=== PATIENT | female | born 2000 | race Caucasian/White ===

== ENCOUNTER 2019-02-09 20:11 | Day surgery (SDC) | payer OTHER ==
[2019-02-09 20:55] VITALS: BP 115/78; TEMP 98.4; BMI 26.6
[2019-02-09] MEDS ORDERED: hydrALAZINE 20 MG/ML VIAL SLOW IVP PRN (21:01)
--- NOTE | 2019-02-09 22:14 | PDOC.FPROB ---
FMR OB H&P: HPI - History of Present Illness Chief Complaint: DFM History of Present Illness: 18 yo @ 38.6 by LMP and 15 week sono presents for evaluation of DFM. Pt reports she is not feeling baby kick as much as usual. Prior to arrival pt reported some movement, but diminished compared to usual. Otherwise, no ctx, vag bleeding, vag discharge, LOF. No NVDC. Primary Care Physician: Linda CERVANTES FMR OB H&P: Current - Care : 1 Para: 0 Gestational age: 38.5 Due date: 02/18/2019 Dating Criteria: LMP 15 week sono - OB Labs Blood type: A RH: negative Antibody Screen: negative HIV: negative RPR: negative HepBsAg: negative Rubella: immune Quad screen: unknown Urine drug screen: not done Gonorrhea: negative Chlamydia: negative 1 hour gtt: 112 GBS: unknown FMR OB H&P: History - Past Medical History PMH: None - Social History Social History: Denies ETD FMR OB H&P: Medications - Current Home Medications: Medication Instructions Recorded Confirmed Type No Known 02/09/19 02/09/19 History Allergies/Adverse Reactions: Allergies Allergy/AdvReac Type Severity Reaction Status Date / Time No Known Allergies Allergy Unverified 02/09/19 20:56 FMR OB H&P: ROS - Review of Systems General: denies: fever/chills Eyes: denies: vision changes ENT: denies: nasal congestion Cardiovascular: denies: chest pain, edema Respiratory: denies: cough, congestion Gastrointestinal: denies: abdominal pain Genitourinary (Female): denies: vaginal discharge, vaginal pain, vaginal bleeding Musculoskeletal: denies: stiffness, tenderness Neurologic: denies: numbness, syncope, seizures Integumentary: denies: rash FMR OB H&P: Vital Signs - Maternal Vital signs: Vital Signs - First Documented Temp Resp BP Pulse Ox 98.4 F 14 115/78 82 L 02/09/19 20:51 02/09/19 20:51 02/09/19 20:51 02/09/19 20:51 - Heart Tones Baseline: 140 Variability: moderate Acceleration: present Deceleration: absent Category: category 1 [place] contractions every: Rare,few FMR OB H&P: Physical Exam - Physical Exam General: NAD, awake, alert and oriented HEENT: normocephalic and atraumatic, PERRLA, EOMI, MMM, conjunctiva clear, no scleral icterus Neck: supple, trachea midline Heart: RRR, normal S1/S2, no murmurs/rubs/gallops, no edema General: CTAB, no respiratory distress, good air movement, no rales/rhonchi Abdomen: soft, gravid, non-tender Musculoskeletal: pulses present, FROM in all four extremities Neurological: cranial nerves II through XII intact, no focal deficit Skin: no rash, good tugor - Pelvic Exam Estimated Weight: 6 lbs FMR OB H&P: Results - Imaging Imagin/8 BPP normal umbilical doppler, normal placenta MYRON borderline @ 6.9 FMR OB H&P: A/P - Problem List (1) Term Status: Acute Code(s): Z34.90 - ENCNTR FOR SUPRVSN OF NORMAL , UNSP, UNSP TRIMESTER (2) Decreased movement Status: Acute Code(s): O36.8190 - DECREASED MOVEMENTS, UNSP TRIMESTER, UNSP Disposition: 18 yo @ 38.5 presents for decreased movement - strip reactive and BPP 12/19 - Borderline MYRON @ 6.9Cm - Will DC to home and have pt f/u in clinic - reschedule mBPP this week in clinic to reassess MYRON Discussion: Date/Time: 02/09/19 4276 This H&P was discussed with Dr. Gaona who agree with the above documentation and plan.
--- NOTE | 2019-02-09 22:28 | ULT ---
US Biophysical Profile HISTORY: Decreased movement at home. COMPARISON: None. FINDINGS: A single viable intrauterine in a vertex presentation is present. heart rat e is 162 bpm. The amniotic fluid index is 6.1. The placenta is anterior. biophysical profile score is 8 of a possible 8. IMPRESSION: biophysical profile score of 8 of a possible 8
== END 2019-02-09 22:40 | disposition home or self-care (01) ==
LOC: L&D/OP 20:11
PROVIDERS: ATTEND Family Medicine
DX: O36.8130 Decreased fetal movements, third trimester, not applicable or unspecified (principal); Z3A.38 38 weeks gestation of pregnancy
CPT/HCPCS: 76819; 99282

== ENCOUNTER 2019-02-13 15:06 | Day surgery (SDC) | payer OTHER ==
[2019-02-13 15:35] VITALS: BMI 27.1
[2019-02-13] MEDS ORDERED: hydrALAZINE 20 MG/ML VIAL SLOW IVP PRN (15:48)
--- NOTE | 2019-02-13 16:20 | PDOC.FPROB ---
FMR OB H&P: HPI - History of Present Illness Chief Complaint: Elevated BP in clinic History of Present Illness: 18yo @ 39.2 by LMP c/w 15wk sono sent from clinic for elevated BP. BP was 144/76 today in clinic for which she presented for BPP/NST. Pt currently denies any symptoms and has no concerns/complaints. Endorses good movement, no LOF, change in vaginal d/c, vaginal bleeding, SOB, CP, [place], vision changes, RUQ pain, or significant LE edema. Of note, she presented last week to L&D triage for decreased movement, BPP was 8/8 and MYRON 6.1, vertex. She previously had US with MFM at 30.3 that was normal with MYRON of 16.2. No history of elevated BP prior in . Primary Care Physician: HELEN Oliva FMR OB H&P: Current - Care : 1 Para: 0 Gestational age: 39.2 Due date: 02/18/2019 Dating Criteria: LMP c/w 15wk sono Course/Complications: borderline MYRON - OB Labs Blood type: A RH: negative Antibody Screen: negative HIV: negative RPR: negative HepBsAg: negative Rubella: immune Quad screen: unknown (did not get) Gonorrhea: negative Chlamydia: negative 1 hour gtt: 112 - passed GBS: negative - Additional Ultrasound Additional: MFM us at 30.3 MYRON 16.2, anterior placenta. 25% Hadlock 20wk Anatomy US 75% growth. BPP last week for decreased movement MYRON 6.1, 8/8, vertex FMR OB H&P: History - Past Medical History PMH: none - OB History OB History: none - SLEEP LAB TECHNOLOGIST History SLEEP LAB TECHNOLOGIST History: none - Surgical History Sx History: none - Social History Social History: Denies Tob, EtOH, illicits. No new partners since conception. No h/o STD's. - Family History Family History: DMII. No OB or pediatric illnesses in family. FMR OB H&P: Medications - Current Home Medications: Medication Instructions Recorded Confirmed Type No Known 02/09/19 02/13/19 History Allergies/Adverse Reactions: Allergies Allergy/AdvReac Type Severity Reaction Status Date / Time No Known Allergies Allergy Verified 02/13/19 15:37 FMR OB H&P: ROS - Review of Systems General: denies: fever/chills, weight/appetite/sleep changes Eyes: denies: vision changes, double vision, scotomas ENT: denies: nasal congestion, rhinorrhea, sore throat Cardiovascular: denies: chest pain, palpitation Respiratory: denies: cough, congestion, shortness of breath Gastrointestinal: denies: abdominal pain, nausea, vomiting, diarrhea, constipation Genitourinary (Female): denies: incontinence, dysuria, hematuria, hesitancy, vaginal discharge, vaginal pain, vaginal bleeding, contractions, vaginal pressure Musculoskeletal: denies: pain Neurologic: denies: numbness, weakness Integumentary: denies: rash Psychological: denies: depression, anxiety FMR OB H&P: Vital Signs - Maternal Vital signs: BP 112/83 and 119/79, HR 98, 97% on RA. - Heart Tones Baseline: 140 Variability: moderate (reactice) Acceleration: present Deceleration: absent [place] contractions every: none FMR OB H&P: Physical Exam - Physical Exam General: NAD, awake, alert and oriented HEENT: EOMI, MMM, conjunctiva clear Neck: supple, trachea midline Heart: RRR, normal S1/S2, no murmurs/rubs/gallops, no edema General: CTAB, no respiratory distress, good air movement, no rales/rhonchi, no wheezing Abdomen: soft, gravid, non-tender, bowel sound present Musculoskeletal: normal gait and station Neurological: no focal deficit Skin: no rash Psychiatric: normal mood and affect FMR OB H&P: A/P - Problem List (1) Elevated blood pressure reading Status: Acute Code(s): R03.0 - ELEVATED BLOOD-PRESSURE READING, W/O DIAGNOSIS OF HTN (2) Term Status: Acute Code(s): Z34.90 - ENCNTR FOR SUPRVSN OF NORMAL , UNSP, UNSP TRIMESTER Disposition: 18yo @ 39.2 by LMP c/w 15wk sono with borderline MYRON on last BPP presents for elevated BP in clinic. #Elevated BP - 144/76 in clinic today, sent to L&D triage - no history of elevated BP. BP in triage 1179/79 and 122/83, will continue to monitor - no indication for PreE workup as of now, will monitor BP and if elevated x2 will obtain CBC, CMP, Ur Pr/Cr - FHT x20min, reassuring with no contractions, accels, no decels, moderate variability, baseline 140 - BPP 12/19 with MYRON 6.9 - Records reviewed and drop in size percentile and MYRON with small abdomen on exam, will obtain Growth US. #Borderline MYRON - On previous BPP last week for decreased movement, 12/19 at that time - Repeat BPP today MYRON 6.9 with deepest vertical pocket 2.8 - denies any LOF, will continue to monitor #Term - 39.2 today, FER 02/18/19 - Scheduled post-dates induction for 02/25 Dispo: Pending continued BP monitoring and Growth US. Will obtain PreE labs if warranted. Anticipate d/c if all WNL or induction if indicated. Addendum - Attending - Attending Attestation Date/Time: 02/14/19 6013 I personally evaluated the patient and discussed the management with Dr. Barron and Dhruv and team. I agree with the History, Examination, Assessment and Plan documented above with any addition or exceptions noted below.
--- NOTE | 2019-02-13 16:44 | ULT ---
US Biophysical Profile: 02/13/2019 3:47 PM CLINICAL HISTORY: Borderline MYRON. COMPARISON: 02/09/2019 FINDINGS: heart rate: 144 bpm. MYRON: 6.9 cm Biophysical profile: 8 of 8 IMPRESSION: Normal biophysical profile
--- NOTE | 2019-02-13 18:21 | ULT ---
ULTRASOUND OBSTETRICAL COMPLETE: DATE: 02/13/2019 HISTORY: 18-year-old female in third trimester of . Evaluate growth. FINDINGS: number: muñoz lie: Vertex Maternal cervix: Not visualized Placenta: Anterior. No placenta previa. Amniotic fluid volume: MYRON = 7cm heart rate: 137 bpm The following anatomy is visualized, with no evidence of anomalies: Bladder, kidneys, four-chamber heart, and stomach. The rest of the anatomy is poorly visualized. biometry: Biparietal diameter (BPD): 9.7 cm 39 w 5 d Head circumference (HC): 33.7 cm 38 w 4 d Abdominal circumference (AC): 31.9 cm 35 w 6 d Femur length (FL): 7.5 cm 38 w 4 d Average ultrasound age (AUA): 37 w 5 d Estimated date of delivery (FER): 03/01/2019 Estimated weight (EFW): 3161 g +/- 468 g IMPRESSION: 1) Live 3rd trimester intrauterine gestation. 2) Estimated gestational age of 37 weeks, 5 days by today's ultrasound. In contrast, the gestationa l age estimated by LMP would be 39 weeks 2 days. 3) cephalic lie.
--- NOTE | 2019-02-13 19:14 | PDOC.EVN ---
Event Note - Event Note Event Note: 18yo @ 39.2 by LMP c/w 15wk sono with borderline MYRON on last BPP presents for elevated BP in clinic. #Elevated BP - 144/76 in clinic today, sent to L&D triage - no history of elevated BP. BP in triage 119/79, 122/83, 114/71 - no indication for PreE workup - FHT x20min, reassuring with no contractions, accels, no decels, moderate variability, baseline 140 - BPP 12/19 with MYRON 6.9 - Growth U/S shows Hadlock 23%, was 25% on 12/27 at appointment with MFM - Will d/c today with likely rescheduling of induction to sooner date #Borderline MYRON - On previous BPP last week for decreased movement, 12/19 at that time - Repeat BPP today MYRON 6.9 with deepest vertical pocket 2.8 - denies any LOF - sent flag to clinic to schedule patient for repeat BPP on 02/17 #Term - 39.2 today, FER 02/18/19 - Scheduled post-dates induction for 02/25; called Dr. Sosa Barron who will possibly re-schedule induction for 02/18 Dispo: Discharge with f/u BPP 02/17 and f/u with Dr. Sosa Barron about induction
[2019-02-14] MEDS ORDERED: FLU VACC QS2019-20(6MOS UP)/PF 60 MCG/0.5 ML SYRINGE IM ONE (15:45)
== END 2019-02-13 19:47 | disposition home or self-care (01) ==
LOC: L&D/OP 15:06
PROVIDERS: ATTEND Emergency Medicine
DX: O99.89 Other specified diseases and conditions complicating pregnancy, childbirth and the puerperium (principal); R03.0 Elevated blood-pressure reading, without diagnosis of hypertension; Z3A.39 39 weeks gestation of pregnancy
CPT/HCPCS: 76815; 76819

== ENCOUNTER 2019-02-14 11:38 | Inpatient (IN) | payer OTHER ==
[2019-02-14 12:10] VITALS: BMI 27.1
--- NOTE | 2019-02-14 12:51 | PDOC.LDHP ---
Labor and Delivery H&P Chief complaint: other (lower abdominal pain) HPI: Maria Isabel Sanchez is a 18 year old F at 39.3 wks by 15 week sono, FER of 2018. She presents to the L&D for lower abdominal pain. Started this morning and has been constant. Denies any contractions, loss of fluid, vaginal discharge or bleeding. She has been feeling baby move. She denies any fever, chills, chest pain, dyspnea, n/v, dysuria, urinary frequency. She had an US done with MFM at 30.3 wks, at that time, her MYRON was 16.2, ant placenta, hadlock of 25%. A 20 week US showed Hadlock 75% growth. BPP last week showed MYRON 6.1, 8/8, vertex. She was seen in L&D yesterday after having a high BP in clinic. BPs were all normal in L&D. There was concern about growth so BPP and repeat growth US were done. MYRON was 7 and BPP was 8/8. Current gestational age (weeks): 39 (39.3) Due date: 02/18/19 Dating criteria: last menstrual period, first trimester ultrasound Grav: 1 Para: 0 Current complications: none Abnormal US findings: Yes (MFM us at 30.3 MYRON 16.2, anterior placenta. 25% Hadlock) Current medications: pre-siddharth vitamins Allergies/Adverse Reactions: Allergies Allergy/AdvReac Type Severity Reaction Status Date / Time No Known Allergies Allergy Verified 02/13/19 15:37 Social history: none - Physical Exam Vital signs reviewed and normal: yes General: NAD, resting, breathing through contractions Heart: RRR Lungs: nonlabored breathing Abdomen: NTTP Extremeties: no edema FHT: category 1, variability present [place] contractions every: none - OB Labs Blood type: A RH: negative Antibody Screen: negative HIV: negative RPR: negative HEPSAg: negative 1 hour GCT: negative GBS: negative Rubella: immune - Assessment 1) sIUP 2) Round ligament pain 3) Borderline MYRON - Plan -: 1) sIUP - schedule eIOL on 02/18/19 - 39.3 wks by 15 wk sono - Reactive NST - checking BPP and MYRON 2) Borderline MYRON - on 02/13/19, MYRON was 7.0, 12/19 BPP - repeating BPP and MYRON today 3) Abdominal pain - patient no alex, likely round ligament pain - asymptomatic otherwise, no signs of infection - no dysuria, vaginal discharge or bleeding Addendum - Attending - Attending Attestation Date/Time: 02/14/19 8581 I personally evaluated the patient and discussed the management with Dr. Pereira. I agree with the History, Examination, Assessment and Plan documented above with any addition or exceptions noted below. My own bedside MYRON revealed only a single pocket of 1.87cm. BPP ordered.
[2019-02-14] MEDS ORDERED: hydrALAZINE 20 MG/ML VIAL SLOW IVP PRN ×2 (13:08→14:59)
--- NOTE | 2019-02-14 14:38 | ULT ---
ULTRASOUND BIOPHYSICAL PROFILE: DATE: 02/14/2019 HISTORY: 18-year-old female in third trimester of with oligohydramnios. FINDINGS: breathin tone: 2 movement: 2 Amniotic fluid volume: 2 There is a pocket of amniotic fluid measuring 2 x 2 centimeters, which allows score of 2. However, the overall MYRON is 4.5 cm. IMPRESSION: 1. Normal biophysical profile score of 8 out of 8, excluding the nonstress test. 2. MYRON of 4.5 cm consistent with oligohydramnios.
[2019-02-14] MEDS ORDERED: Ondansetron PF 4 MG/2 ML Vial IVP PRN (14:59)
[2019-02-14] MEDS ORDERED: Promethazine HCl 25 MG/ML VIAL IM PRN (14:59)
[2019-02-14] MEDS ORDERED: Bupivacaine/Epinephrine 0.25% 30 ML VIAL ONE (15:00)
--- NOTE | 2019-02-14 15:07 | PDOC.BPN ---
- Brief Progress Note 1500 on 02/14/19: US returned with BPP 8/8 and MYRON around 4. Plan to induce patient, cytotec vs pit depending on check Informed patient and counseled on oligohydramnios and IOL Patient expressed understanding and agreed to IOL, appreciated discussion. Will notify patient's PCP, Dr. Sosa Barron. Will initiate induction after cervical check. OB general admission orders placed.
[2019-02-14 15:45] LABS: Hemoglobin 12.9 g/dL (12.0-16.0); Mean Corpuscular HGB CONC 34.2 g/dL (32.0-36.0); Mean Corpuscular Volume 87.8 fL (78.0-98.0); Mean Platelet Volume 11.7 fL (7.4-10.4); Platelet Count 146 thou/uL (130-400); RBC Distribution Width 12.6 % (11.5-14.5); White Blood Cell (WBC) Count 9.8 thou/uL (4.8-10.8)
[2019-02-14] MEDS ORDERED: Misoprostol 100 MCG TAB ONE (15:53)
[2019-02-14] MEDS: Misoprostol 100 MCG TAB VAG SCH ×2 (15:57→21:00)
[2019-02-14 16:25] LABS: HBSAg Index 0.18 S/CO (0-0.99); Hep B Surf Ag Non-Reactive S/CO (NonReactive); Syphilis Antibody Nonreactive (Nonreactive); Syphilis Antibody Index 0.06 S/CO (<1.00 Non-Reactive)
--- NOTE | 2019-02-14 19:38 | PDOC.LDPN ---
Labor & Delivery Progress Note - Subjective Subjective: comfortable (back ache) - Objective Vital signs reviewed and normal: yes General: NAD, resting Dilation: 1 Effacement: 25% Station: -3 FHT: category 1 (150/mod/+accel/no decel) [place] contractions every: 1-3 - Assessment (1) Oligohydramnios Code(s): O41.00X0 - OLIGOHYDRAMNIOS, UNSP TRIMESTER, NOT APPLICABLE OR UNSP Current Visit: Yes Status: Acute (2) Term Code(s): Z34.90 - ENCNTR FOR SUPRVSN OF NORMAL , UNSP, UNSP TRIMESTER Current Visit: No Status: Acute Plan: continue plan of care, labor augmentation -: IOL for oligohydramnios - MYRON of 4 - cervical check unchanged - Cat I strip - Ctx q1-3 min Plan to monitor and for repeat cytotec placement when contractions space out.
--- NOTE | 2019-02-15 01:40 | PDOC.LDPN ---
Labor & Delivery Progress Note - Subjective Subjective: comfortable - Objective Vital signs reviewed and normal: yes General: NAD, resting Uterine fundus: non tender SVE: 1.5/50/-2 FHT: category 1 [place] contractions every: 1-2 Plan: continue plan of care -: IOL for oligohydramnios - MYRON of 4 - cervical check 1.550/-2 - Cat I strip - Ctx q1-2 min - s/p 2 doses cytotec so far, last dose @ 2109 when ctx had spaced out and cervical check was 06/12/- Plan to monitor and for repeat cytotec placement when contractions space out.
[2019-02-15] MEDS: Misoprostol 100 MCG TAB VAG SCH (04:50)
--- NOTE | 2019-02-15 05:39 | PDOC.LDPN ---
Labor & Delivery Progress Note - Subjective Subjective: comfortable - Objective Vital signs reviewed and normal: yes General: NAD, resting Uterine fundus: non tender SVE: 1.5/50/-2 FHT: category 1 [place] contractions every: 2-6min Plan: continue plan of care, labor augmentation -: IOL for oligohydramnios - MYRON of 4 - cervical check 1.5/50/-2 @ 0450, unchanged from last - Cat I strip - Ctx q2-6 min - cytotec placed @ 0450 - s/p 2 doses cytotec so far, this will be 3rd dose Placed 3rd cytotec, will do next cervical check in 4 hours; continue to monitor
[2019-02-15] MEDS ORDERED: NS w/ Oxytocin 10 units 500 ML ONE (08:54)
[2019-02-15] MEDS ORDERED: Butorphanol Tartrate 1 MG/ML VIAL ONE (10:28)
[2019-02-15] MEDS ORDERED: Lidocaine 1% (PF) 30 ML VIAL SC PRN (11:09)
[2019-02-15] MEDS ORDERED: Butorphanol Tartrate 1 MG/ML VIAL SLOW IVP PRN (11:11)
[2019-02-15] MEDS ORDERED: NS w/ Oxytocin 10 units 500 ML IV SCH (11:15)
--- NOTE | 2019-02-15 11:50 | PDOC.LDPN ---
Labor & Delivery Progress Note - Subjective Subjective: comfortable, painful contractions, no concerns - Objective Vital signs reviewed and normal: yes General: NAD, resting, breathing through contractions Uterine fundus: non tender SVE: /-1 @ 1030 Dilation: 2 Effacement: 75% Station: -1 FHT: category 2 (Baseline 140, accels, moderate variability, occasional variables, not consistent), variable decelerations (2 seen on recent strip in 2 hour strip), variability present [place] contractions every: 4-5min Procedures: Cook Balloon placement - Assessment (1) Oligohydramnios Code(s): O41.00X0 - OLIGOHYDRAMNIOS, UNSP TRIMESTER, NOT APPLICABLE OR UNSP Current Visit: Yes Status: Acute (2) Term Code(s): Z34.90 - ENCNTR FOR SUPRVSN OF NORMAL , UNSP, UNSP TRIMESTER Current Visit: No Status: Acute Plan: continue plan of care, labor augmentation (Cook Balloon), pitocin for augmentation -: 18yo @ 39.4 by LMP c/w 15wk sono admitted for IOL 2/2 oligo #IOL for oligohydramnios - @ 39.4 - MYRON of 4 at admission - /-1 @ 1030, s/p cytotec x3 - Reassuring Cat 2 strip with 1-2 decels over hour strip, no recurrence or persistence, accels present, moderate variability, baseline 140 - Ctx q4-6 min - Cook balloon placed at 60/40, will increased to 80/80 - started on pit to tirate - recheck q2h IVF: LR @125cc/hr Diet: Clears -> NPO Code: Full Dispo: Admitted for IOL 2/2 oligo. Cook balloon placed, started on pit, continue augmentation of labor and close monitoring. Plan discussed with pt at bedside, voiced agreement and understanding of the above plan. Above plan discussed with Dr. Gaona.
[2019-02-15] MEDS ORDERED: Fentanyl 4 mcg/Bup 0.1% Cadd 100 ML ONE (12:26)
[2019-02-15] MEDS: Lactated Ringer's 1,000 ML IV SCH ×4 (12:39→12:43)
--- NOTE | 2019-02-15 13:12 | PDOC.LDPN ---
Labor & Delivery Progress Note - Subjective Subjective: comfortable - Objective Vital signs reviewed and normal: yes General: NAD Uterine fundus: non tender Dilation: Balloon still in place @ 80/80 FHT: category 1, variability present [place] contractions every: 2-6 - Assessment (1) Oligohydramnios Code(s): O41.00X0 - OLIGOHYDRAMNIOS, UNSP TRIMESTER, NOT APPLICABLE OR UNSP Current Visit: Yes Status: Acute (2) Term Code(s): Z34.90 - ENCNTR FOR SUPRVSN OF NORMAL , UNSP, UNSP TRIMESTER Current Visit: No Status: Acute Plan: labor augmentation (balloon placed), pitocin for augmentation -: 18yo @ 39.4 by LMP c/w 15wk sono admitted for IOL 2/2 oligo #IOL for oligohydramnios - @ 39.4 - MYRON of 4 at admission - 2/75/-1 @ 1030, s/p cytotec x3 - Cat 1 strip, baseline of 140 - Ctx q2-6 min - Cook balloon placed at 60/40, increased to 80/80 @ 1030 - titrating pit - epidural placed - recheck q2h IVF: LR @125cc/hr Diet: Clears -> NPO Code: Full
[2019-02-15] MEDS ORDERED: Ondansetron PF 4 MG/2 ML Vial IVP PRN (13:30)
[2019-02-15] MEDS ORDERED: ePHEDrine/0.9% NaCl/PF SYRINGE 50 mg/10 ml SLOW IVP PRN (13:30)
[2019-02-15] MEDS ORDERED: Acetaminophen 325 MG TAB PO PRN (13:30)
[2019-02-15] MEDS ORDERED: Fentanyl 4 mcg/Bupivacaine 0.1% Cassette 100 ML EPIDURAL SCH (13:30)
[2019-02-15] MEDS ORDERED: Naloxone HCl 0.4 mg/ml Vial IVP PRN ×2 (13:30)
[2019-02-15] MEDS ORDERED: Lactated Ringer's 500 ML IV PRN (13:30)
[2019-02-15] MEDS ORDERED: Promethazine HCl 25 MG/ML VIAL IM PRN (13:30)
[2019-02-15] MEDS ORDERED: Communication Order-Pharmacy FS SCH (13:30)
[2019-02-15] MEDS ORDERED: diphenhydrAMINE 50 MG/ML VIAL IVP PRN (13:30)
--- NOTE | 2019-02-15 16:16 | PDOC.LDPN ---
Labor & Delivery Progress Note - Subjective Subjective: comfortable - Objective Vital signs reviewed and normal: yes General: NAD Uterine fundus: non tender Dilation: 4 Effacement: 75% Station: 0 FHT: category 2, late decelerations, variability present [place] contractions every: 3-6 AROM: meconium stained fluid IUPC placed: yes FSE placed: yes Resuscitative measures: amniofusion, maternal position change (left lateral) - Assessment (1) Oligohydramnios Code(s): O41.00X0 - OLIGOHYDRAMNIOS, UNSP TRIMESTER, NOT APPLICABLE OR UNSP Current Visit: Yes Status: Acute (2) Term Code(s): Z34.90 - ENCNTR FOR SUPRVSN OF NORMAL , UNSP, UNSP TRIMESTER Current Visit: No Status: Acute Plan: continue plan of care -: 18yo @ 39.4 by LMP c/w 15wk sono admitted for IOL 2/2 oligo #IOL for oligohydramnios - @ 39.4 - MYRON of 4 at admission - /0 - epidural in place - Cat 2 strip w/ baseline 135, 2 late decels following AROM, then resolved to mod variability with accels - Holding pit until Cat 1 - recheck q2h IVF: LR @125cc/hr Diet: Clears -> NPO Code: Full
[2019-02-15] MEDS: NS / Oxytocin 40 units/1000ml 1,000 ML IV PRN ×2 (18:55→21:19)
--- NOTE | 2019-02-15 19:33 | PDOC.OPDEL ---
OB Operative/Delivery Note Delivery Dr/Surgeon: Linda Carrero Assist: Dr. Gaona Pre-Delivery Diagnosis: medically indicated induction (oligohydramnios) Procedure/Post Delivery Dx: spontaneous vaginal delivery Weeks gestation: 39 (39.4) Anesthesia: epidural - Findings A Sex: male - 1 min: 8 - 5 min: 9 - Additional Findings/Plan Placenta delivered: spontaneous Repaired Obstetrical Laceration: 1st degree (1st degree right labial, 1st degree perineal) Compilations/Other Findings: Vaginal Delivery Dictation Guideline Delivering Physician Linda Barron Attending Dr. Gaona Procedure: Spontaneous Vaginal Delivery Anesthesia: epidural QBL: 54 ml Pre-op Diagnosis: 1. Term intrauterine 2. Medically indicated induction 2/2 oligohydramnios Post-op Diagnosis: 1. Term intrauterine , delivered 2. same as above Indications: A 18y/o female presented for medically indicated induction 2/ 2 oligohydramnios Delivery Note: This is 18yo F @ 39.4 wks who delivered a viable M at 1848. Following an uneventful antepartum course, a vigorous M was delivered over an intact perineum in the L occipitoanterior position. Anterior Shoulder and then remainder of the body delivered. No nuchal cord. The head was held down and mouth and nares were bulb suctioned. Cord clamped after delayed cord clamping and cut and cord blood collected. Placenta delivered intact in the [place] with a 3 vessel cord noted. Fundal massage was performed and the fundus was firm. The cervix and vagina were inspected. 1st degree right vaginal wall laceration and 1st degree perineal Laceration noted and repaired with 3.0 chromic and 3.0 vicryl suture in the usual fashion with good approximation and hemostasis. Infant went to nursery in good condition for routine care. Apgars were 8/9 at 1 & 5 minutes, respectively. Patient tolerated delivery well and went to after routine recovery/care. Post delivery plan: routine recovery
[2019-02-15] MEDS ORDERED: Bisacodyl 10 MG SUPP PR PRN (21:19)
[2019-02-15] MEDS ORDERED: Preparation H Ointment 28 GM TUBE PR PRN (21:19)
[2019-02-15] MEDS ORDERED: diphenhydrAMINE 25 MG CAP PO PRN (21:19)
[2019-02-15] MEDS ORDERED: hydrALAZINE 20 MG/ML VIAL SLOW IVP PRN (21:19)
[2019-02-15] MEDS ORDERED: Milk Of Magnesia 30 ML UDCUP PO PRN (21:19)
[2019-02-15] MEDS ORDERED: Lanolin Ointment 7 GM TUBE TOP PRN (21:19)
[2019-02-15] MEDS ORDERED: Benzocaine-Menthol 82.5 ML CAN TOP PRN (21:19)
[2019-02-15] MEDS ORDERED: NS / Oxytocin 40 units/1000ml 1,000 ML IV SCH (21:19)
[2019-02-16] MEDS: Docusate Calcium (SURFAK) 240 MG CAP PO SCH ×3 (01:58→20:55)
[2019-02-16] MEDS: Ibuprofen 800 MG TAB PO SCH ×2 (01:59→06:31)
[2019-02-16] MEDS: Lactated Ringer's 1,000 ML IV SCH ×4 (01:59→20:56)
--- NOTE | 2019-02-16 04:57 | PDOC.PP ---
Post Progress Note Post Day #: 1 Subjective: Feeling well. Eating, drinking, voiding. Has not stooled yet. Having some vaginal pain when she voids, and when she sits. Refused ibuprofen last night when offered to her because "it doesn't bother me unless I'm going to the bathroom or sitting up." Ambulating. Lochia that of a normal period. PO intake tolerated: yes Flatus: yes Ambulation: yes Vital Signs (12 hours) Temp Pulse Resp BP 02/15/19 23:45 98.4 F 72 20 131/85 02/15/19 22:50 97.9 F 62 20 112/77 02/15/19 21:40 98.0 F 73 20 122/71 Weight Weight 83.461 kg - Physical Examination General: NAD Cardiovascular: no m/r/g, RRR Respiratory: clear to auscultation bilaterally, non-labored breathing Abdominal: + bowel sounds, lochia (same as a normal period), no distention, appropriately TTP Fundus firm & at: below umbilicus Skin: no rash Perineum: Some moderate swelling of right labial lip Neurological: no gross focal deficits Psychiatric: A&Ox3, normal affect Result Diagrams: 02/14/19 15:35 Additional Labs: Post Labs Blood Type A NEGATIVE 02/14/19 17:52 Hep Bs Antigen Non-Reactive S/CO (NonReactive) 02/14/19 15:35 - Assessment/Plan 18 yo G1 now P1001 delivered M via @ 39.4 wks on 02/15/2019 s/p IOL 2/2 Oligohydramnios PPD#1 -QBL 54 ml; VSS -Eating, drinking, voiding; passing flatus -ambulating -Lochia normal -Uterus firm below umbilicus -Plans to bottle feed -Desires circumcision, discussed with patient -Continue routine care -Ibuprofen PRN for pain, pain is well controlled -Encouraged ambulation Rho Negative -Maternal blood type A neg, Baby blood type also A neg -No blood type incompatibility, does not need rhogam Dispo: Likely dc to home in 1-2 days Code status: full Diet: Regular
[2019-02-16] MEDS ORDERED: Sodium Chloride 0.9% 10 ML ONE (06:22)
[2019-02-16] MEDS: Ferrous Sulfate 325 MG TAB PO SCH ×2 (07:36→16:49)
[2019-02-16] MEDS ORDERED: Adacel (T-DAP) 0.5 ML SYRINGE IM ONE (09:00)
[2019-02-16] MEDS: Prenatal Vitamin 1 TAB PO SCH (11:18)
[2019-02-16] MEDS ORDERED: FLU VACC QS2019-20(6MOS UP)/PF 60 MCG/0.5 ML SYRINGE IM ONE (12:00)
[2019-02-16] MEDS: Ibuprofen 100 MG/5 ML UDCUP PO SCH ×2 (16:48→20:56)
[2019-02-16] MEDS ORDERED: Zolpidem Tartrate 5 MG TAB PO PRN (18:14)
--- NOTE | 2019-02-17 04:59 | PDOC.PP ---
Post Progress Note Post Day #: 2 Subjective: Feeling well. Pain is well controlled without ibuprofen. Ambulating, +flatus. Eating and drinking well, voiding. Lochia less than a normal period. PO intake tolerated: yes Flatus: yes Ambulation: yes Vital Signs (12 hours) Temp Pulse Resp BP Pulse Ox 02/16/19 20:00 98.5 F 91 18 129/83 99 Weight Weight 83.461 kg - Physical Examination General: NAD Cardiovascular: no m/r/g, RRR Respiratory: clear to auscultation bilaterally, non-labored breathing Abdominal: + bowel sounds, lochia (about the same or less than normal period), no distention, appropriately TTP Fundus firm & at: umbilicus Skin: no rash Perineum: normal appearing, no swelling Neurological: no gross focal deficits Psychiatric: A&Ox3, normal affect Result Diagrams: 02/17/19 05:23 Additional Labs: Post Labs Blood Type A NEGATIVE 02/14/19 17:52 Hep Bs Antigen Non-Reactive S/CO (NonReactive) 02/14/19 15:35 (1) Oligohydramnios Code(s): O41.00X0 - OLIGOHYDRAMNIOS, UNSP TRIMESTER, NOT APPLICABLE OR UNSP Status: Acute (2) Term Code(s): Z34.90 - ENCNTR FOR SUPRVSN OF NORMAL , UNSP, UNSP TRIMESTER Status: Acute - Assessment/Plan 18 yo G1 now P1001 delivered M via @ 39.4 wks on 02/15/2019 s/p IOL 2/2 Oligohydramnios PPD#2 -Afebrile, pulse in 90s and low 100s. Will repeat H&H; QBL was only 54 ml. -Eating, drinking, voiding; passing flatus, ambulating, Lochia normal -Uterus firm below umbilicus -Plans to bottle feed -Desires circumcision, discussed with patient, consent signed -Ibuprofen PRN for pain, pain is well controlled without ibuprofen -Continue routine care Rho Negative -Maternal blood type A neg, Baby blood type also A neg -No blood type incompatibility, does not need rhogam Dispo: Plan to DC home today, pending any clinical picture changes. Follow up with PCP Dr. Linda Barron in 2 weeks. Code status: full Diet: Regular Addendum - Attending - Attending Attestation Date/Time: 02/17/19 0881 I personally evaluated the patient and discussed the management with Dr. Barron I agree with the History, Examination, Assessment and Plan documented above with any addition or exceptions noted below. 18 yo female s/p on 02/15/19 at 18:48 PPD# 2 Patient doing well. Lochia appropriate. Pain controlled. Denies dizziness, CP, and SOB. Voiding well. VS and labs reviewed. NAD. MMM. II/ systolic flow murmur at LSB. Nonradiating. CTAB. NT/ND. Fundus firm below umbilicus. 1. s/p : Doing well. Meeting milestones. Ok to d/c to home. 2. Rh negative: No need for Rhogam based on infants blood type. 3. Contraception: Unsure. 4. Declined breast feeding. Not interested. Discussed risk for mastitis and prevention. D/c to home. Follow up with PCP in 2 wks. ER precautions discussed. Aiden
[2019-02-17 05:35] LABS: Hemoglobin 11.1 g/dL (12.0-16.0)
[2019-02-17 08:09] VITALS: BP 118/68; TEMP 98.6
[2019-02-17] MEDS: Ferrous Sulfate 325 MG TAB PO SCH (10:14)
[2019-02-17] MEDS: Ibuprofen 100 MG/5 ML UDCUP PO SCH (10:14)
[2019-02-17] MEDS: Docusate Calcium (SURFAK) 240 MG CAP PO SCH (10:14)
[2019-02-17] MEDS: Prenatal Vitamin 1 TAB PO SCH (10:14)
[2019-02-17] MEDS: Lactated Ringer's 1,000 ML IV SCH (10:15)
== END 2019-02-17 13:10 | disposition home or self-care (01) | DRG 807 ==
LOC: L&D/OP 11:38 → L&D 17:17 → 3SW 02-15 21:37
PROVIDERS: ADMIT Family Medicine; ATTEND Family Medicine
PROC: 10E0XZZ Delivery of Products of Conception, External Approach (ICD-10-PCS; principal; 2019-02-15)
PROC: 0HQ9XZZ Repair Perineum Skin, External Approach (ICD-10-PCS; 2019-02-15)
PROC: 0UQMXZZ Repair Vulva, External Approach (ICD-10-PCS; 2019-02-15)
PROC: 10907ZC Drainage of Amniotic Fluid, Therapeutic from Products of Conception, Via Natural or Artificial Opening (ICD-10-PCS; 2019-02-15)
PROC: 3E033VJ Introduction of Other Hormone into Peripheral Vein, Percutaneous Approach (ICD-10-PCS; 2019-02-15)
PROC: 3E0P7VZ Introduction of Hormone into Female Reproductive, Via Natural or Artificial Opening (ICD-10-PCS; 2019-02-15)
DX: O41.03X0 Oligohydramnios, third trimester, not applicable or unspecified (principal); Z37.0 Single live birth; O76 Abnormality in fetal heart rate and rhythm complicating labor and delivery; O77.0 Labor and delivery complicated by meconium in amniotic fluid; O70.0 First degree perineal laceration during delivery; Z3A.39 39 weeks gestation of pregnancy; O26.893 Other specified pregnancy related conditions, third trimester; Z67.91 Unspecified blood type, Rh negative
CPT/HCPCS: 36415; 76815; 76819; 85014; 85018; 85027; 86780; 86850; 86900; 86901; 87340; 88307; C1726; J0595; J2590

== ENCOUNTER 2022-12-29 22:49 | Emergency (ER) | payer OTHER ==
[2022-12-29 23:09] LABS: #Monocytes 0.7 thou/uL (0.11-0.59); #Neutrophils 6.2 thou/uL (1.40-6.50); %Basophils 0.2 % (0.0-1.0); %Eosinophils 0.5 % (0.0-10.0); %Lymphocytes 20.5 % (21.0-51.0); %Monocytes 7.5 % (0.0-10.0); %Neutrophils 71.1 % (42.0-75.0); Hematocrit 33.2 % (36.0-47.0); Mean Corpuscular HGB CONC 33.1 g/dL (32.0-36.0); Mean Corpuscular Hemoglobin 28.2 pg (27.0-31.0); Mean Corpuscular Volume 85.1 fl (78.0-98.0); Mean Platelet Volume 12.5 fL (7.4-10.4); Platelet Count 170 10x3/uL (130-400); RBC Distribution Width 13.4 % (11.5-14.5); White Blood Cell (WBC) Count 8.8 10x3/uL (4.8-10.8)
[2022-12-29 23:22] LABS: INR-International Normal Ratio 0.9; Prothrombin Time 12.6 sec (12.0-14.7)
[2022-12-29 23:23] LABS: PTT 26.3 sec (22.9-36.1)
[2022-12-29 23:33] LABS: ALT (SGPT) 7 U/L (8-55); AST (SGOT) 14 U/L (5-34); Albumin 3.3 g/dL (3.5-5.0); Alkaline Phosphatase 231 U/L (40-110); Anion Gap 14 mmol/L (10-20); BUN (Urea Nitrogen) 10 mg/dL (7.0-18.7); Bilirubin, Total 0.4 mg/dL (0.2-1.2); Calc. Creatinine Clearance 0 mL/min (70-130); Calcium 9.2 mg/dL (7.8-10.44); Carbon Dioxide 18 mmol/L (22-29); Chloride 108 mmol/L (98-107); Estimated GFR 120; Globulin 3.7 g/dL (2.4-3.5); Glucose 94 mg/dL (70-105); Potassium 3.6 mmol/L (3.5-5.1); Sodium 136 mmol/L (136-145)
== END 2022-12-29 23:34 | disposition short-term general hospital (02) ==
LOC: ERS 22:49
DX: O60.00 Preterm labor without delivery, unspecified trimester (principal); Z3A.00 Weeks of gestation of pregnancy not specified
CPT/HCPCS: 80053; 85025; 85610; 85730